=== PATIENT | male | born 1965 | race Caucasian/White ===

== ENCOUNTER 2018-09-18 13:41 | Emergency (ER) | payer MEDICAID ==
[~2018-09-18] VITALS: Ht 165.1 cm; Wt 51.7 kg
[~2018-09-18 13:41] MED LIST: CLON1TAB4 DT; LAM100T PO; LAMO200T2 PO; SUMAPOW3 PO; TOPI100T68 PO
[2018-09-18 13:45] VITALS: BP 95/66
[2018-09-18] MEDS ORDERED: KETOROLAC TROMETH 60MG/2ML VIAL IM ONE (15:15)
[2018-09-18] MEDS ORDERED: CYCLOBENZAPRINE HCL 10 MG TAB PO ONE (15:15)
== END 2018-09-18 15:40 | disposition home or self-care (01) ==
LOC: ER 13:41
DX: S39.012A Strain of muscle, fascia and tendon of lower back, initial encounter (principal); J44.9 Chronic obstructive pulmonary disease, unspecified; I10 Essential (primary) hypertension; F17.210 Nicotine dependence, cigarettes, uncomplicated; Z86.73 Personal history of transient ischemic attack (TIA), and cerebral infarction without residual deficits; Z88.8 Allergy status to other drugs, medicaments and biological substances; Z79.899 Other long term (current) drug therapy; X50.0XXA Overexertion from strenuous movement or load, initial encounter; X50.9XXA Other and unspecified overexertion or strenuous movements or postures, initial encounter; Y93.B9 Activity, other involving muscle strengthening exercises; Y92.89 Other specified places as the place of occurrence of the external cause; Y99.8 Other external cause status
CPT/HCPCS: 72100; 96372; 99283; J1885

== ENCOUNTER 2018-10-01 19:36 | Emergency (ER) | payer MEDICAID ==
[~2018-10-01] VITALS: Ht 160 cm; Wt 52.2 kg
[2018-10-01 19:43] VITALS: BP 127/83
[2018-10-01] MEDS ORDERED: HYDROcodone-ACET 5/325MG TAB PO ONE (23:15)
== END 2018-10-01 23:34 | disposition home or self-care (01) ==
LOC: EDUNIT# 19:36 → EDBD 19:36 → ER 19:39
DX: S43.401A Unspecified sprain of right shoulder joint, initial encounter (principal); J44.9 Chronic obstructive pulmonary disease, unspecified; I10 Essential (primary) hypertension; F17.210 Nicotine dependence, cigarettes, uncomplicated; Z88.5 Allergy status to narcotic agent; Z79.899 Other long term (current) drug therapy; Z86.73 Personal history of transient ischemic attack (TIA), and cerebral infarction without residual deficits; W01.198A Fall on same level from slipping, tripping and stumbling with subsequent striking against other object, initial encounter; Y93.89 Activity, other specified; Y99.8 Other external cause status; Y92.89 Other specified places as the place of occurrence of the external cause
CPT/HCPCS: 73000; 73030

== ENCOUNTER 2019-08-02 16:19 | Emergency (ER) | payer OTHER, MEDICAID ==
[~2019-08-02] VITALS: Ht 165.1 cm; Wt 54.4 kg
[~2019-08-02 16:19] MED LIST changes: +CLON1TAB10 DT; -CLON1TAB4 DT
[2019-08-02] MEDS ORDERED: ALBUTEROL SULF 2.5 MG/0.5ML(0.5%) NEB SOLN NEB ONE ×2 (16:30→18:15)
[2019-08-02] MEDS ORDERED: methylPREDNISolone SOD SUCC 125 MG/2 ML VL IV ONE (16:30)
[2019-08-02] MEDS ORDERED: cefTRIAXone 1GM/50ML D5W 50 ML IV ONE (16:30)
[2019-08-02] MEDS ORDERED: IPRATROPIUM BROM 0.5 MG/2.5ML INH SOL NEB ONE (16:30)
[2019-08-02 16:35] LABS: Basophils # (auto) 0.1 10 ^3/uL (0-0.2); Basophils % (auto) 0.8 % (0.0-2.0); Eosinophils # (auto) 0.3 10 ^3/uL (0-0.8); Eosinophils % (auto) 2.6 % (0.0-7.0); Hematocrit 44.3 % (41.0-53.0); Hemoglobin 15.5 g/dL (13.5-17.5); Lymphocytes # (auto) 3.2 10 ^3/uL (0.4-5.4); Lymphocytes % (auto) 27.9 % (10.0-50.0); Mean Corpuscular Hemoglobin 33.3 pg (28.0-32.0); Mean Corpuscular Volume 94.9 fL (80.0-100.0); Monocytes # (auto) 0.7 10 ^3/uL (0-1.3); Monocytes % (auto) 6.1 % (0.0-12.0); Neutrophils # (auto) 7.1 10 ^3/uL (1.6-8.6); Neutrophils % (auto) 62.6 % (37.0-80.0); Platelet Count (auto) 237 10^3/uL (140-450); Red Blood Cells 4.67 10^6/uL (4.5-5.90); Red Cell Distribution Width 13.3 % (11.8-14.3); White Blood Cell 11.4 10^3/uL (4.4-10.8)
[2019-08-02 16:57] LABS: Albumin 3.9 g/dL (3.4-5.0); Anion Gap 7 (5-15); BUN/Creatinine Ratio 10.5; Blood Urea Nitrogen 10 mg/dL (7-18); Carbon Dioxide 25 mmol/L (21-32); Chloride 105 mmol/L (98-107); GFR African American 105 mL/min; GFR Non-African American 87 mL/min; Glucose 114 mg/dL (74-106); Potassium 3.9 mmol/L (3.5-5.1); Sodium 137 mmol/L (136-145)
[2019-08-02 17:02] LABS: Alanine Aminotransferase 31 U/L (16-61); Alkaline Phosphatase 129 U/L (45-117); Aspartate Aminotransferase 20 U/L (15-37); Bilirubin, Total 0.4 mg/dL (0.2-1.0); Total Protein 7.4 g/dL (6.4-8.2)
[2019-08-02 18:00] VITALS: BP 115/86
[2019-08-02 18:45] LABS: Urine Bacteria NONE SEEN /hpf (None Seen); Urine Blood Negative /uL (Negative); Urine Mucus FEW (None Seen); Urine Specific Gravity 1.024 (1.001-1.035); Urine WBC 7 /hpf (0 - 3)
== END 2019-08-02 19:33 | disposition home or self-care (01) ==
LOC: EDBD 16:19 → ER 16:21
DX: J44.9 Chronic obstructive pulmonary disease, unspecified (principal); D72.829 Elevated white blood cell count, unspecified; I10 Essential (primary) hypertension; F17.210 Nicotine dependence, cigarettes, uncomplicated
CPT/HCPCS: 36415; 71045; 80053; 81001; 83880; 84484; 85025; 93005; 94640; 96365; 96375; 99285; J0696; J2930; J7644

== ENCOUNTER 2023-10-31 14:30 | Emergency (ER) | payer OTHER ==
[~2023-10-31] VITALS: Ht 165.1 cm; Wt 54.5 kg
[~2023-10-31 14:30] MED LIST changes: +CLON-853 DT; -CLON1TAB10 DT
[2023-10-31 14:43] VITALS: BP 144/91; PULSE 81; RESP 20; O2SAT 96
[2023-10-31 16:09] LABS: Basophils # (auto) 0.1 10 ^3/uL (0-0.2); Basophils % (auto) 0.9 % (0.0-2.0); Eosinophils # (auto) 0.4 10 ^3/uL (0-0.8); Eosinophils % (auto) 3.4 % (0.0-7.0); Hematocrit 43.6 % (41.0-53.0); Hemoglobin 15.1 g/dL (13.5-17.5); Lymphocytes # (auto) 2.6 10 ^3/uL (0.4-5.4); Lymphocytes % (auto) 24.1 % (10.0-50.0); Mean Corpuscular Hemoglobin 33.6 pg (28.0-32.0); Mean Corpuscular Hgb Conc. 34.7 g/dL (32.0-36.0); Monocytes # (auto) 0.6 10 ^3/uL (0-1.3); Monocytes % (auto) 5.3 % (0.0-12.0); Neutrophils # (auto) 7.3 10 ^3/uL (1.6-8.6); Neutrophils % (auto) 66.3 % (37.0-80.0); Nucleated Red Blood Cells % 0.1 %; Red Blood Cells 4.49 10^6/uL (4.5-5.90); Red Cell Distribution Width 13.2 % (11.8-14.3)
[2023-10-31 16:31] LABS: Alanine Aminotransferase 34 U/L (7-40); Albumin 4.5 g/dL (3.2-4.8); Alkaline Phosphatase 95 U/L (46-116); Anion Gap 4 (5-15); Aspartate Aminotransferase 17 U/L (13-40); BUN/Creatinine Ratio 7.6 (10.0-20.0); Blood Urea Nitrogen 7 mg/dL (9-23); Calcium 9.8 mg/dL (8.7-10.4); Carbon Dioxide 28 mmol/L (20-30); Chloride 110 mmol/L (98-107); Glucose 87 mg/dL (74-106); Magnesium 1.9 mg/dL (1.6-2.6); Sodium 142 mmol/L (136-145)
[2023-10-31 16:32] LABS: Bilirubin, Total 0.4 mg/dL (0.2-1.0); Total Protein 6.4 g/dL (5.7-8.2)
== END 2023-10-31 19:50 | disposition home or self-care (01) ==
LOC: EDBD 14:30 → ER 14:30
DX: R55 Syncope and collapse (principal); R40.4 Transient alteration of awareness; I10 Essential (primary) hypertension; J44.9 Chronic obstructive pulmonary disease, unspecified; F17.210 Nicotine dependence, cigarettes, uncomplicated; Z86.73 Personal history of transient ischemic attack (TIA), and cerebral infarction without residual deficits; Z98.890 Other specified postprocedural states; Z79.899 Other long term (current) drug therapy; Z91.09 Other allergy status, other than to drugs and biological substances; Z88.6 Allergy status to analgesic agent
CPT/HCPCS: 36415; 71045; 80053; 83615; 83735; 83880; 84484; 85025; 93005

== ENCOUNTER 2024-09-24 21:32 | Inpatient (IN) | payer OTHER ==
[~2024-09-24] VITALS: Ht 162.6 cm; Wt 54.0 kg
[2024-09-24 21:32] VITALS: TEMP 97.8
[2024-09-24] MEDS: IPRATROPIUM BROM 0.5 MG/2.5ML INH SOL NEB ONE (21:45)
[2024-09-24] MEDS: ALBUTEROL SULF 2.5 MG/0.5ML(0.5%) NEB SOLN NEB ONE (21:45)
[2024-09-24] MEDS ORDERED: ASPirin 81 mg TAB PO ONE (21:45)
[2024-09-24] MEDS ORDERED: predniSONE 20 MG TAB PO ONE (21:45)
--- NOTE | 2024-09-24 21:49 | ED.PDOC ---
SOB-HPI HPI Comments 59-year-old male came to ER via EMS for shortness of breath. Patient has history of hypertension and COPD. Patient is not on any home oxygen. About an hour prior to arrival, patient started complaining of substernal chest pains, constant, nonradiating, associated with shortness of breath. Patient was saturating 94% on room air upon arrival. Patient was given breathing treatment while on the way to the emergency room Chief Complaint: Shortness of Breath Time Seen by MD: 21:48 Primary Care Provider: PARESH Cheung notes: Bakery Sales Clerk Notes Information Source: Patient, Emergency Med Personnel Mode of Arrival: EMS Severity: Moderate Timing: Minutes Duration: Since onset Context: With Light Exertion PE Risk Factors: None History of: COPD Prehospital treatment: Breathing Tx, Oxygen Associated Signs and Symptoms: Chest Pain Quality: Pressure Radiation: No Radiation Location: Substernal Past Medical History PAST MEDICAL HISTORY: CAD, COPD, CVA, HTN, Seizures Surgical History: Tonsillectomy Family History Family History: No family hx of Cancer, No family hx of Heart babatunde, No family hx of HTN, No family hx of Lung babatunde Social History Smoker: Cigarettes, Less Than 1 Pack/Day, Other Alcohol: Occasionally Drugs: Denies Drug Use Lives In: Home Constitutional: denies: chills, diaphoresis, fatigue, fever, malaise, sweats, weakness, others EENTM: denies: blurred vision, double vision, ear bleeding, ear discharge, ear drainage, ear pain, ear ringing, eye pain, eye redness, hearing loss, mouth p ain, mouth swelling, nasal discharge, nose bleeding, nose congestion, nose pain, photophobia, tearing, throat pain, throat swelling, voice changes, others Respiratory: reports: SOB at rest, shortness of breath; denies: cough, hemoptysis, orthopnea, SOB with excertion, stridor, wheezing, others Cardiovascular: reports: chest pain; denies: dizzy spells, diaphoresis, Dyspnea on exertion, edema, irregular heart beat, left arm pain, lightheadedness, palpitations, PND, syncope, others Gastrointestinal: denies: abdomen distended, abdominal pain, blood streaked bowels, constipated, diarrhea, dysphagia, difficulty swallowing, hematemesis, m kristin, nausea, poor appetite, poor fluid intake, rectal bleeding, rectal pain, vomiting, others Genitourinary: denies: burning, dysuria, flank pain, frequency, hematuria, incontinence, penile discharge, penile sore, pain, testicle pain, testicle swelling, urgency, others Neurological: denies: dizziness, fainting, headache, left sided numbness, left sided weakness, numbness, paresthesia, pre-existing deficit, right sided numbness, right sided weakness, seizure, speech problems, tingling, tremors, weakness, others Musculoskeletal: denies: back pain, gout, joint pain, joint swelling, muscle pain, muscle stiffness, neck pain, others Integumetry: denies: bruises, change in color, change in hair/nails, dryness, laceration, lesions, lumps, rash, wounds, others Allergic/Immunocompromised: denies: Difficulty Healing, Frequent Infections, Hives, Itching, others Hematologic/Lymphatic: denies: anemia, blood clots, easy bleeding, easy bruising, swollen glands, others Endocrine: denies: excessive hunger, excessive sweating, excessive thirst, excessive urination, flushing, intolerance to cold, intolerance to heat, unexplained weight gain, unexplained weight loss, others Psychiatric: denies: anxiety, bipolar disorder, depression, hopeless, panic disorder, schizophrenia, sleepless, suicidal, others Physical Exam General Appearance: No Apparent Distress, Normal HEENT: Normal ENT Inspection, Pharynx Normal, TMs Normal Neck: Full Range of Motion, Non-Tender, Normal, Normal Inspection Respiratory: Chest Non-Tender, Lungs Clear, No Accessory Muscle Use, No Respiratory Distress, Normal Breath Sounds Cardiovascular: No Edema, No JVD, No Murmur, No Gallop, Normal Peripheral Pulses, Regular Rate/Rhythm Breast Exam: Deferred Gastrointestinal: No Organomegaly, Non Tender, No Pulsatile Mass, Normal Bowel Sounds, Soft Genitalia: Deferred Pelvic: Deferred Rectal: Deferred Extremities: No calf tenderness, Normal capillary refill, Normal inspection, Normal range of motion, Non-tender, No pedal edema Musculoskeletal : Apperance: Normal Neurologic: Alert, insurance underwriter II-XII nml as Tested, No Motor Deficits, Normal Affect, Normal Mood, No Sensory Deficits Cerebellar Function: Normal Reflexes: Normal Skin: Dry, Normal Color, Warm Lymphatic: No Adenopathy EKG EKG : Pulse Rate (adult): 89 Cardiac Rhythm: NSR Was a procedure done? Was a procedure done?: No Differential Dx Differential Diagnosis: Asthma, CHF, COPD, Myocardial infarction, Panic Attack, Pneumonia, Respiratory Distress X-Ray, Labs, Meds, VS Vital Signs Date Time Temp Pulse Resp B/P (MAP) Pulse Ox O2 Delivery O2 Flow Rate FiO2 09/24/24 22:28 20 88 Room Air* 0 21 09/24/24 21:49 89 09/24/24 21:34 89 09/24/24 21:32 97.8 83 24 110/72 (85) 94 97.8 Lab Test 09/24/24 22:56 09/24/24 22:15 09/24/24 21:56 Range/Units Troponin I High Sensitivity 662 *H 190 *H </=54 ng/L Blood Gas Specimen Type Arterial Blood Gas Sample Site Right radial Blood Gas Patient Temperature 37.0 Arterial Blood Date Drawn [id number] Arterial Blood pH 7.443 7.350-7.450 Arterial Blood Partial Pressure CO2 33.5 L 35.0-48.0 mmHg Arterial Blood Partial Pressure O2 51.2 *L 83.0-108.0 mmHg Arterial Blood HCO3 22.4 21.0-28.0 mmol/L Arterial Blood Oxygen Saturation 86.0 L 94.0-98.0 % Arterial Blood Base Excess -0.9 -2.0-3.0 mmol/L Arterial Blood Oxyhemoglobin 81.9 L 94.0-98.0 % Arterial Blood Carboxyhemoglobin 4.4 H 0.5-1.5 % Arterial Blood Methemoglobin 0.4 0.0-1.5 % Kenney Test Yes Blood Gas Total Hemoglobin 14.40 13.5-17.5 g/dL Blood Gas Liter Flow 0.00 Blood Gas Modality Room air FiO2 % 21.0 Blood Gas Critical Value Read Back yes Blood Gas Notified Whom Blood Gas Notified Time [id number] Blood Gas Notified By aubrey beckford, rt White Blood Count 10.7 4.4-10.8 10^3/uL Red Blood Count 4.41 L 4.5-5.90 10^6/uL Hemoglobin 14.9 13.5-17.5 g/dL Hematocrit 42.5 41.0-53.0 % Mean Corpuscular Volume 96.4 80.0-100.0 fL Mean Corpuscular Hemoglobin 33.9 H 28.0-32.0 pg Mean Corpuscular Hemoglobin Concent 35.1 32.0-36.0 g/dL Red Cell Distribution Width 13.3 11.8-14.3 % Platelet Count 202 140-450 10^3/uL Mean Platelet Volume 8.0 6.9-10.8 fL Neutrophils (%) (Auto) 70.3 37.0-80.0 % Lymphocytes (%) (Auto) 19.3 10.0-50.0 % Monocytes (%) (Auto) 7.3 0.0-12.0 % Eosinophils (%) (Auto) 2.4 0.0-7.0 % Basophils (%) (Auto) 0.7 0.0-2.0 % Neutrophils # (Auto) 7.5 1.6-8.6 10 ^3/uL Lymphocytes # (Auto) 2.1 0.4-5.4 10 ^3/uL Monocytes # (Auto) 0.8 0-1.3 10 ^3/uL Eosinophils # (Auto) 0.3 0-0.8 10 ^3/uL Basophils # (Auto) 0.1 0-0.2 10 ^3/uL Nucleated Red Blood Cells 0.1 % Prothrombin Time 11.2 9.3-11.8 sec Prothrombin Time INR 1.06 0.9-1.15 Activated Partial Thromboplast Time 26.7 24.5-34.5 SEC Sodium Level 142 136-145 mmol/L Potassium Level 3.5 3.5-5.1 mmol/L Chloride Level 107 98-107 mmol/L Carbon Dioxide Level 27 20-31 mmol/L Anion Gap 8 5-15 Blood Urea Nitrogen 14 9-23 mg/dL Creatinine 0.90 0.700-1.30 mg/dL Glomerular Filtration Rate Calc 97 >90 mL/min BUN/Creatinine Ratio 15.6 10.0-20.0 Serum Glucose 109 H 74-106 mg/dL Calcium Level 9.4 8.7-10.4 mg/dL Total Bilirubin 0.2 0.2-1.0 mg/dL Aspartate Amino Transferase (AST) 28 13-40 U/L Alanine Aminotransferase (ALT) 22 7-40 U/L Alkaline Phosphatase 133 H 46-116 U/L B-Type Natriuretic Peptide 11.37 0-100 pg/mL Total Protein 7.2 5.7-8.2 g/dL Albumin 4.6 3.2-4.8 g/dL Current Medications Medications (Trade) Dose Ordered Sig/Aden Route Start Time Stop Time Status Last Admin Albuterol (Ventolin Medneb) 5 mg ONCE ONCE NEB 09/24/24 21:45 09/24/24 21:46 DC 09/24/24 21:45 Ipratropium [place] (Atrovent Medneb) 0.5 mg ONCE ONCE NEB 09/24/24 21:45 09/24/24 21:46 DC 09/24/24 21:45 Time of 1ST Reevaluation: 21:46 Reevaluation 1ST: Unchanged Patient Education/Counseling: Diagnosis, Treatment Family Education/Counseling: No Family Present Departure 1 Departure Time of Disposition: 00:04 Impression: Primary Impression: COPD (chronic obstructive pulmonary disease) Additional Impression: Acute coronary syndrome Disposition: ADMITTED INPATIENT Admit to: Tele Condition: Guarded Discharged With: Self Comments Shortness of Breath and Chest Tightness Chief Complaint: Shortness of breath and chest tightness History of Present Illness: 59-year-old male with known history of COPD and coronary artery disease presents to the ED with complaints of shortness of breath and chest tightness for the past day. Patient has a nebulizer machine at home but no supplemental oxygen. He reports improvement in symptoms after receiving oxygen from EMS during transpor t. His symptoms are concerning for both COPD exacerbation and possible acute coronary syndrome given his cardiac history. Review of Systems: Respiratory: Positive for shortness of breath and chest tightness Cardiovascular: Positive for chest tightness All other systems reviewed and negative Medications: Home nebulizer treatments Complete medication list not available at time of documentation Allergies: No known allergies documented Past Medical History: 1. Chronic Obstructive Pulmonary Disease (COPD) 2. Coronary Artery Disease (CAD) Lab Results: CBC: Unremarkable Blood Gas: PCO2 34 Troponin: Initial 190, repeat increased to 662 BNP: Normal at 11.4 Chemistry Panel: Otherwise unremarkable Imaging and Other Relevant Results: Chest X-ray: No acute pathology Medical Decision Making: Summary Statement: 59-year-old male with history of COPD and CAD presenting with acute shortness of breath and chest tightness, found to have significantly elevated and rising troponin levels. Problem List: 1. Acute Coronary Syndrome 2. COPD Exacerbation Differential Diagnosis: 1. NSTEMI 2. COPD Exacerbation 3. Unstable Angina 4. Acute Heart Failure 5. Pneumonia ED Course: Patient received aspirin, nebulizer treatment, and prednisone. Given rising troponin levels and concurrent COPD exacerbation, decision made to admit patient for further management. Assessment and Plan: 1. Acute Coronary Syndrome: - Elevated troponin with significant increase from 190 to 662 - Treated with aspirin - Admit for further cardiac workup and management 2. COPD Exacerbation: - Treated with nebulizer and prednisone - Responded well to oxygen therapy - Continue treatment during admission Billing Information: ICD-10: I21.4 - Non-ST elevation (NSTEMI) myocardial infarction ICD-10: J44.1 - COPD with acute exacerbation Critical Care Note Critical Care Time?: Yes (35 min-critical care time only) Critical care comment: Shortness of breath, chest pain Total critical care time: Approximately 36 minutes Due to a high probability of clinically significant, life threatening deterioration, the patient required my highest level of preparedness to intervene emergently and I personally spent this critical care time directly and personally managing the patient. This critical care time included obtaining a history; examining the patient; pulse oximetry; ordering and review of studies; arranging urgent treatment with development of a management plan; evaluation of patient's response to treatment; frequent reassessment; and, discussions with other providers. This critical care time was performed to assess and manage the high probability of imminent, life-threatening deterioration that could result in multi-organ failure. It was exclusive of separately billable procedures and treating other patients. Stability Stability form required: No Heart Score Heart Score: Heart Score Response (Comments) Value History Moderate Suspicious 1 EKG Normal 0 Age 45-64 1 Risk Factors >3 or Hx ASHD 2 Troponin >3 x's Normal limit 2 Total 6 I personally scribed for CAMELIA GOLDEN MD ([email or web address]) on 09/24/24 at 21:49. Electronically submitted by Blake Martínez ([employer]). I personally scribed for CAMELIA GOLDEN MD ([email or web address]) on 09/24/24 at 23:06. Electronically submitted by Blake Martínez ([employer]). CAMELIA GOLDEN MD Sep 24, 2024 21:49
[2024-09-24 22:14] LABS: Basophils # (auto) 0.1 10 ^3/uL (0-0.2); Basophils % (auto) 0.7 % (0.0-2.0); Eosinophils # (auto) 0.3 10 ^3/uL (0-0.8); Eosinophils % (auto) 2.4 % (0.0-7.0); Hematocrit 42.5 % (41.0-53.0); Hemoglobin 14.9 g/dL (13.5-17.5); Lymphocytes # (auto) 2.1 10 ^3/uL (0.4-5.4); Lymphocytes % (auto) 19.3 % (10.0-50.0); Mean Corpuscular Hemoglobin 33.9 pg (28.0-32.0); Mean Corpuscular Hgb Conc. 35.1 g/dL (32.0-36.0); Mean Corpuscular Volume 96.4 fL (80.0-100.0); Monocytes # (auto) 0.8 10 ^3/uL (0-1.3); Monocytes % (auto) 7.3 % (0.0-12.0); Neutrophils # (auto) 7.5 10 ^3/uL (1.6-8.6); Neutrophils % (auto) 70.3 % (37.0-80.0); Nucleated Red Blood Cells % 0.1 %; Platelet Count (auto) 202 10^3/uL (140-450); Red Blood Cells 4.41 10^6/uL (4.5-5.90); Red Cell Distribution Width 13.3 % (11.8-14.3); White Blood Cell 10.7 10^3/uL (4.4-10.8)
[2024-09-24 22:20] LABS: Base Excess -0.9 mmol/L (-2.0-3.0)
[2024-09-24 22:28] VITALS: RESP 20
[2024-09-24 22:41] LABS: Alanine Aminotransferase 22 U/L (7-40); Albumin 4.6 g/dL (3.2-4.8); Anion Gap 8 (5-15); Aspartate Aminotransferase 28 U/L (13-40); BUN/Creatinine Ratio 15.6 (10.0-20.0); Blood Urea Nitrogen 14 mg/dL (9-23); Calcium 9.4 mg/dL (8.7-10.4); Carbon Dioxide 27 mmol/L (20-31); Sodium 142 mmol/L (136-145); Total Protein 7.2 g/dL (5.7-8.2)
[2024-09-24 22:42] LABS: Alkaline Phosphatase 133 U/L (46-116); Bilirubin, Total 0.2 mg/dL (0.2-1.0); Chloride 107 mmol/L (98-107); Glucose 109 mg/dL (74-106); Potassium 3.5 mmol/L (3.5-5.1)
--- NOTE | 2024-09-24 22:58 | DVH ---
CHEST RADIOGRAPH Indication: SOB Technique: Single frontal view of the chest was obtained COMPARISON: XY CHEST XRAY 1 VIEW on DOS: 10/31/23, CHEST PORTABLE on DOS: 08/02/19 FINDINGS: Lines and Tubes: None Lungs: Clear Pleura: No effusion. No pneumothorax. Cardiomediastinal contours: Unremarkable Bones: Unremarkable IMPRESSION: 1. No acute disease.
[2024-09-24 23:05] LABS: INR 1.06 (0.9-1.15); Partial Thromboplastin Time 26.7 SEC (24.5-34.5); Prothrombin Time 11.2 sec (9.3-11.8)
[2024-09-25] MEDS ORDERED: ACETAMINOPHEN 325 MG TAB PO PRN (01:45)
[2024-09-25] MEDS ORDERED: HYDROcodone-ACET 5/325MG TAB PO PRN (01:45)
[2024-09-25] MEDS ORDERED: AZITHROMYCIN 500MG/ 250ML 250 ML IV SCH (02:15)
[2024-09-25] MEDS ORDERED: ASPirin 325 MG TAB PO ONE (02:45)
[2024-09-25 02:48] VITALS: BP 110/70; PULSE 16; O2SAT 90
--- NOTE | 2024-09-25 02:52 | DVHHPRES ---
History of Present Illness Resident Creating Document: LUCHO COOPER RESIDENT History of Present Illness This is a 59-year-old male with past medical history of COPD, CVA in 2015, recurrent seizures after CVA, running low blood pressure chronically, dyslipidemia, who presented to the ED with acute shortness of breath. The patient reports shortness of breath with minimal exertion associated with cough and sputum production yellowish in color for the past three days and substernal chest pain varying in intensity. The patient reports that had chest pain before this episode but not with this intensity. Patient also mentions that he had a Holter for seven days currently they found a tachyarrhythmia which he does not recall the name. The patient denied fever, chills, weight loss, lower extremity edema or any other symptoms at this time. Initial EKG showed sinus rhythm with right bundle branch block. ABG showed hypoxemia with a PaO2 of 51.2. Initial labs showed slightly elevated WBC at 10.7 with a normal CMP but troponins came back elevated and peaked up at 1418. BNP was 11.37 on normal range. Initial chest x-ray showed bilateral hyperinflated lungs with no clear consolidations. We will admit the patient for further assessment and management of COPD exacerbation and rule out ACS. Past medical history: COPD, CVA in 2015, seizure, chronic low blood pressure, dyslipidemia Home medications: Gabapentin 400 mg daily, aspirin 81 mg daily, Trelegy, la motrigine 200 mg b.i.d., lacosamide 400 mg b.i.d.?, Surgical history: Tonsillectomy, vasectomy, cyst removed over the right eye Social history: Smoked more than two packs of cigarettes throughout all his life but he is currently smoking less than one pack a day and cutting down. No drugs or alcohol intake. Cardiovascular: hyperipidemia Pulmonary: COPD SUPPLY CHAIN DEVELOPMENT MANAGER: Seizure Past Surgical History: Other (Vasectomy and cyst over the right eye), Tonsillectomy Family History: None Smoke: <1 pack per day ALCOHOL: none Drugs: None Lives: with Family Domestic Violence: Neg Review of Systems Constitutional: No: Fever, Chills, Sweats, Weakness, Malaise, Other Eyes: No: Pain, Vision change, Conjunctivae inflammation, Eyelid inflammation, Other, Redness ENT: No: Ear pain, Ear discharge, Nose pain, Nose discharge, Nose congestion, Mouth pain, Mouth swelling, Throat pain, Throat swelling, Other Respiratory: Cough, Shortness of breath, SOB with excertion, Sputum; No: Dry, Wheezing, Hemoptysis, Pleuritic Pain, Wheezing, Other Cardiovascular: Chest Pain; No: Palpitations, Orthopnea, Paroxysmal Noc. Dyspnea, Edema, Lt Headedness, Other Gastrointestinal: No: Nausea, Vomiting, Abdominal Pain, Diarrhea, Constipation, Melena, Hematochezia, Other Genitourinary: No Dysuria, No Frequency, No Incontinence, No Hematuria, No Retention, No Other Musculoskeletal: No: other, neck pain, shoulder pain, arm pain, back pain, hand pain, leg pain, foot pain Skin: No: Rash, Lesions, Jaundice, Bruising, Other Neurological: No: Weakness, Numbness, Incoordination, Change in speech, Confusion, Seizures, Other Allergies: Coded Allergies: Aloe (Verified Allergy, Mild, 06/11/14) [place] (Verified Allergy, Unknown, 11/04/13) Morphine (Unverified Adverse Reaction, Mild, HEADACE AND ITCHING, 07/12/14) Medications Current Medications Medications Dose Ordered Sig/Aden Route Start Time Stop Time Status Last Admin Dose Admin Acetaminophen 650 mg Q6HP PRN PO 09/25/24 01:45 Acetaminophen/ Hydrocodone Bitart 1 tab Q4HP PRN PO 09/25/24 01:45 Enoxaparin Sodium 40 mg DAILY SC 09/25/24 10:00 Azithromycin 250 ml @ 125 mls/hr DAILY@2200 IV 09/25/24 02:15 Ceftriaxone Sodium 50 ml @ 100 mls/hr DAILY@2100 IV 09/25/24 03:30 Methylprednisolone Sodium Succinate 40 mg BID IV 09/25/24 04:00 Albuterol 2.5 mg Q4HR NEB 09/25/24 06:00 Ipratropium [place] 0.5 mg Q4HR NEB 09/25/24 06:00 Exam Vital Signs Vital Signs Date Time Temp Pulse Resp B/P (MAP) Pulse Ox O2 Delivery O2 Flow Rate FiO2 09/24/24 22:28 20 88 Room Air* 0 21 09/24/24 21:49 89 09/24/24 21:32 97.8 110/72 (85) 97.8 General Appearance: Alert, Oriented X3, Cooperative, mild distress HEENT: Atraumatic, PERRLA, EOMI, Mucous membr. moist/pink Respiratory: Clear to auscultation, Other (There is decreased breath sounds on bilateral lung bases) Cardiovascular: Regular rate, Normal S1, Normal S2, No murmurs Abdominal: Normal bowel sounds, Soft, No tenderness, No hepatospenomegaly Extremities: No clubbing, No cyanosis, No edema, Normal pulses, No tenderness/swelling Skin: No rashes, No breakdown, No significant lesion Neuro: Normal gait, Normal speech, Strength at 5/5 X4 ext, Normal tone, Sensation intact, Cranial nerves 3-12 NL, Reflexes 2+ Psych/Mental Status: Mental status NL, Mood NL Labs/Xrays Labs Test 09/25/24 00:31 09/24/24 22:15 09/24/24 21:56 Range/Units Troponin I High Sensitivity 1418 *H </=54 ng/L Blood Gas Specimen Type Arterial Blood Gas Sample Site Right radial Blood Gas Patient Temperature 37.0 Arterial Blood Date Drawn [id number] Arterial Blood pH 7.443 7.350-7.450 Arterial Blood Partial Pressure CO2 33.5 L 35.0-48.0 mmHg Arterial Blood Partial Pressure O2 51.2 *L 83.0-108.0 mmHg Arterial Blood HCO3 22.4 21.0-28.0 mmol/L Arterial Blood Oxygen Saturation 86.0 L 94.0-98.0 % Arterial Blood Base Excess -0.9 -2.0-3.0 mmol/L Arterial Blood Oxyhemoglobin 81.9 L 94.0-98.0 % Arterial Blood Carboxyhemoglobin 4.4 H 0.5-1.5 % Arterial Blood Methemoglobin 0.4 0.0-1.5 % [place] Test Yes Blood Gas Total Hemoglobin 14.40 13.5-17.5 g/dL Blood Gas Liter Flow 0.00 Blood Gas Modality Room air FiO2 % 21.0 Blood Gas Critical Value Read Back yes Blood Gas Notified Whom Blood Gas Notified Time [id number] Blood Gas Notified By aubrey beckford, rt White Blood Count 10.7 4.4-10.8 10^3/uL Red Blood Count 4.41 L 4.5-5.90 10^6/uL Hemoglobin 14.9 13.5-17.5 g/dL Hematocrit 42.5 41.0-53.0 % Mean Corpuscular Volume 96.4 80.0-100.0 fL Mean Corpuscular Hemoglobin 33.9 H 28.0-32.0 pg Mean Corpuscular Hemoglobin Concent 35.1 32.0-36.0 g/dL Red Cell Distribution Width 13.3 11.8-14.3 % Platelet Count 202 140-450 10^3/uL Mean Platelet Volume 8.0 6.9-10.8 fL Neutrophils (%) (Auto) 70.3 37.0-80.0 % Lymphocytes (%) (Auto) 19.3 10.0-50.0 % Monocytes (%) (Auto) 7.3 0.0-12.0 % Eosinophils (%) (Auto) 2.4 0.0-7.0 % Basophils (%) (Auto) 0.7 0.0-2.0 % Neutrophils # (Auto) 7.5 1.6-8.6 10 ^3/uL Lymphocytes # (Auto) 2.1 0.4-5.4 10 ^3/uL Monocytes # (Auto) 0.8 0-1.3 10 ^3/uL Eosinophils # (Auto) 0.3 0-0.8 10 ^3/uL Basophils # (Auto) 0.1 0-0.2 10 ^3/uL Nucleated Red Blood Cells 0.1 % Prothrombin Time 11.2 9.3-11.8 sec Prothrombin Time INR 1.06 0.9-1.15 Activated Partial Thromboplast Time 26.7 24.5-34.5 SEC Sodium Level 142 136-145 mmol/L Potassium Level 3.5 3.5-5.1 mmol/L Chloride Level 107 98-107 mmol/L Carbon Dioxide Level 27 20-31 mmol/L Anion Gap 8 5-15 Blood Urea Nitrogen 14 9-23 mg/dL Creatinine 0.90 0.700-1.30 mg/dL Glomerular Filtration Rate Calc 97 >90 mL/min BUN/Creatinine Ratio 15.6 10.0-20.0 Serum Glucose 109 H 74-106 mg/dL Calcium Level 9.4 8.7-10.4 mg/dL Total Bilirubin 0.2 0.2-1.0 mg/dL Aspartate Amino Transferase (AST) 28 13-40 U/L Alanine Aminotransferase (ALT) 22 7-40 U/L Alkaline Phosphatase 133 H 46-116 U/L B-Type Natriuretic Peptide 11.37 0-100 pg/mL Total Protein 7.2 5.7-8.2 g/dL Albumin 4.6 3.2-4.8 g/dL Assessment/Plan Assessment/Plan Assessment/plan Acute hypoxic respiratory failure likely due to COPD exacerbation COPD exacerbation Possible viral pneumonia, R/O gram+/- bacterial pneumonia Acute chest pain, R/O ACS Possible stable angina NSTEMI likely type II Dyslipidemia Seizure disorder History of CVA without residual neurologic deficits Plan -initial chest x-ray showed hyperinflated lungs bilaterally with no clear evidence of consolidations -start methylprednisolone 40 mg IV b.i.d. -start IV azithromycin and ceftriaxone -start albuterol and ipratropium med nebs q.4 hours scheduled -EKG showed sinus rhythm with right bundle branch block -troponins were elevated at 662 and peaked up at 1418 -ordered echocardiogram -consulted cardiology for possible stress test -start aspirin 81 mg daily -Start atorvastatin 80mg daily -Resume home meds -Currently on 2 L of O2 through nasal cannula -Monitor Sat closely Goals of care discussed with the patient at bedside for >35min, FULL CODE Plan discussed with Dr. Unger Plan discussed with: Patient My Orders Orders - LUCHO COOPER Procedure Category Date Status Time Admit ADMIT 09/25/24 Transmitted 01:45 Code Status CODE 09/25/24 Transmitted 01:45 Vital Signs [facility] 09/25/24 In Process 01:45 Review Orders With KLARISSA 09/25/24 In Process Adm. 01:45 Encourage Activity As KLARISSA 09/25/24 In Process Tolerate 01:45 Regular Diet DIET 09/25/24 Transmitted Breakfast Pulse Ox Cont Per Day RT 09/25/24 Logged 01:45 Acetaminophen Tablet PHA 09/25/24 In Process (Tylenol Tablet) 01:45 Notify Of Changes KLARISSA 09/25/24 In Process From Base 01:45 Advance Directive KLARISSA 09/25/24 In Process 01:45 Urinalysis LAB 09/25/24 Logged 01:45 Complete Blood Count LAB 09/25/24 Logged 04:00 Drug Screen LAB 09/25/24 Logged 01:45 Hemoglobin A1c LAB 09/25/24 Logged 01:45 Enoxaparin Sodium PHA 09/25/24 In Process (Lovenox) 10:00 Lipid Panel LAB 09/25/24 Logged 01:45 Patient Condition ORDERS 09/25/24 Verified 01:45 Allergies KLARISSA 09/25/24 Verified 01:45 Hydrocodone-Acet PHA 09/25/24 In Process 5/325mg Tab ([place] 01:45 Basic Metabolic Panel LAB 09/25/24 Logged 04:00 Azithromycin 500mg/ PHA 09/25/24 In Process 250ml (Zithromax 50 02:15 Ceftriaxone 1gm/50ml PHA 09/25/24 In Process D5w (Rocephin) 03:30 Methylprednisolone PHA 09/25/24 In Process Sod Succ (Solu Medrol 04:00 Albuterol Medneb PHA 09/25/24 In Process (Ventolin Medneb) 06:00 Ipratropium Medneb PHA 09/25/24 In Process (Atrovent Medneb) 06:00 D-Dimer LAB 09/25/24 In Process 02:11 Echo 2d Mode Cardiac US 09/25/24 Logged DOP 02:11 * Cardiology Consult CONS 09/25/24 Verified 02:15 Date of Service: Sep 25, 2024 Billing Provider: YOGESH UNGER MD Common Visit Codes: [id number] INP/OBS CARE (HIGH) Secondary Visit Codes: [id number] CARE PLAN 30 MINUTES LUCHO COOPER RESIDENT Sep 25, 2024 02:52
[2024-09-25] MEDS ORDERED: lamoTRIgine 100 MG TAB PO SCH (03:00)
[2024-09-25] MEDS ORDERED: cefTRIAXone 1GM/50ML D5W 50 ML IV SCH (03:30)
[2024-09-25] MEDS ORDERED: methylPREDNISolone SOD SUCC 40 MG/ML VL IV SCH (04:00)
[2024-09-25] MEDS ORDERED: ALBUTEROL SULF 2.5 MG/0.5ML(0.5%) NEB SOLN NEB SCH (06:00)
[2024-09-25] MEDS ORDERED: IPRATROPIUM BROM 0.5 MG/2.5ML INH SOL NEB SCH (06:00)
[2024-09-25] MEDS ORDERED: ASPirin 81 mg TAB PO SCH (10:00)
[2024-09-25] MEDS ORDERED: ATORVASTATIN 20 MG TAB PO SCH (10:00)
[2024-09-25] MEDS ORDERED: GABAPENTIN 400 MG CAP PO SCH (10:00)
[2024-09-25] MEDS ORDERED: ENOXAPARIN SOD 40 MG/0.4 ML SYRINGE SC SCH (10:00)
--- NOTE | 2024-09-26 18:33 | DVHDS2 ---
Discharge Summary Date of Admission Sep 25, 2024 at 01:45 Date of Discharge: Sep 25, 2024 Labs/Diagnostic Data: Laboratory Results Test 09/25/24 00:31 09/24/24 22:15 09/24/24 21:56 Troponin I High Sensitivity 1418 ng/L (</=54) Blood Gas Specimen Type Arterial Blood Gas Sample Site Right radial Blood Gas Patient Temperature 37.0 Arterial Blood Date Drawn [id number] Arterial Blood pH 7.443 (7.350-7.450) Arterial Blood Partial Pressure CO2 33.5 mmHg (35.0-48.0) Arterial Blood Partial Pressure O2 51.2 mmHg (83.0-108.0) Arterial Blood HCO3 22.4 mmol/L (21.0-28.0) Arterial Blood Oxygen Saturation 86.0 % (94.0-98.0) Arterial Blood Base Excess -0.9 mmol/L (-2.0-3.0) Arterial Blood Oxyhemoglobin 81.9 % (94.0-98.0) Arterial Blood Carboxyhemoglobin 4.4 % (0.5-1.5) Arterial Blood Methemoglobin 0.4 % (0.0-1.5) Kenney Test Yes Blood Gas Total Hemoglobin 14.40 g/dL (13.5-17.5) Blood Gas Liter Flow 0.00 Blood Gas Modality Room air FiO2 % 21.0 Blood Gas Critical Value Read Back yes Blood Gas Notified Whom Blood Gas Notified Time [id number] Blood Gas Notified By aubrey beckford, rt White Blood Count 10.7 10^3/uL (4.4-10.8) Red Blood Count 4.41 10^6/uL (4.5-5.90) Hemoglobin 14.9 g/dL (13.5-17.5) Hematocrit 42.5 % (41.0-53.0) Mean Corpuscular Volume 96.4 fL (80.0-100.0) Mean Corpuscular Hemoglobin 33.9 pg (28.0-32.0) Mean Corpuscular Hemoglobin Concent 35.1 g/dL (32.0-36.0) Red Cell Distribution Width 13.3 % (11.8-14.3) Platelet Count 202 10^3/uL (140-450) Mean Platelet Volume 8.0 fL (6.9-10.8) Neutrophils (%) (Auto) 70.3 % (37.0-80.0) Lymphocytes (%) (Auto) 19.3 % (10.0-50.0) Monocytes (%) (Auto) 7.3 % (0.0-12.0) Eosinophils (%) (Auto) 2.4 % (0.0-7.0) Basophils (%) (Auto) 0.7 % (0.0-2.0) Neutrophils # (Auto) 7.5 10 ^3/uL (1.6-8.6) Lymphocytes # (Auto) 2.1 10 ^3/uL (0.4-5.4) Monocytes # (Auto) 0.8 10 ^3/uL (0-1.3) Eosinophils # (Auto) 0.3 10 ^3/uL (0-0.8) Basophils # (Auto) 0.1 10 ^3/uL (0-0.2) Nucleated Red Blood Cells 0.1 % Prothrombin Time 11.2 sec (9.3-11.8) Prothrombin Time INR 1.06 (0.9-1.15) Activated Partial Thromboplast Time 26.7 SEC (24.5-34.5) D-Dimer, Quantitative 0.44 mg/L FEU (0.0-0.49) Sodium Level 142 mmol/L (136-145) Potassium Level 3.5 mmol/L (3.5-5.1) Chloride Level 107 mmol/L (98-107) Carbon Dioxide Level 27 mmol/L (20-31) Anion Gap 8 (5-15) Blood Urea Nitrogen 14 mg/dL (9-23) Creatinine 0.90 mg/dL (0.700-1.30) Glomerular Filtration Rate Calc 97 mL/min (>90) BUN/Creatinine Ratio 15.6 (10.0-20.0) Serum Glucose 109 mg/dL (74-106) Calcium Level 9.4 mg/dL (8.7-10.4) Total Bilirubin 0.2 mg/dL (0.2-1.0) Aspartate Amino Transferase (AST) 28 U/L (13-40) Alanine Aminotransferase (ALT) 22 U/L (7-40) Alkaline Phosphatase 133 U/L (46-116) B-Type Natriuretic Peptide 11.37 pg/mL (0-100) Total Protein 7.2 g/dL (5.7-8.2) Albumin 4.6 g/dL (3.2-4.8) Other Laboratory Tests 09/24/24 21:56 Brief Hx & Hospital Course: 59-year-old male with a known history of COPD , history of CVA, dyslipidemia, seizure disorder initially presented to the hospital with the increasing shortness a breath found to have acute COPD exacerbation. Patient was eventually treated with the IV antibiotics med nebs and O2 supplementation. Patient left against medical advice before completion of workup and treatment. Condition at Discharge: Undetermined Final Diagnosis/Problems List 1. Acute hypoxic respiratory failure secondary to acute COPD exacerbation 2. Acute COPD exacerbation 3. Hypertension 4. History of CVA 5. Noncompliance Discharge Disposition: AMA SNF Discharge Will this Physician continue t: No Discharge Statement: "Patient was advised to return to the ER or call 911 if any headaches, dizziness, shortness of breath, chest pain, abdominal pain, bleeding, fevers, or worsening of medical condition. Patient was counseled about treatment plan, medications, possible side effects, patientverbalized understanding. All questions were answered to the best of my ability. This discharge took greater then 30 minutes in planning, reviewing documentation, counseling the patient, and discussing with other team members." ASSESSMENT ASSESSMENT Assessment Date of Service: Sep 25, 2024 Billing Provider: NATALIIA KESSLER MD Common Visit Codes: 12481-YKJ/OBS DISCH DAY <30MIN NATALIIA KESSLER MD Sep 26, 2024 18:33
--- NOTE | 2024-09-27 12:17 | ECG ---
[facility] Test Date: 2024-09-24 Test Time: 21:34:38 Pat Name: CARLY WOODY Department: ED Room: [address] [place] [address] Gender: M [employer]: [employer] : 1965 Requested By: CAMELIA GOLDEN Order Number: [id number] Reading MD: Tino Dobbins Measurements Intervals [place] Rate: 89 P: 83 CA: 201 QRS: -107 QRSD: 127 T: 3 QT: 383 QTc: 467 Interpretive Statements Sinus rhythm Biatrial enlargement RBBB and LAFB Electronically Signed On 09-29-2024 20:44:35 PDT by Tino Dobbins Please click the below link to view image of tracing.
== END 2024-09-25 03:50 | disposition left against medical advice (07) | DRG 189 ==
LOC: EDBD 21:32 → ER 21:37 → OVERFLOW 09-25 01:45
PROVIDERS: ADMIT Student in an Organized Health Care Education/Training Program; ATTEND Emergency Medicine
DX: J96.01 Acute respiratory failure with hypoxia (principal); I21.A1 Myocardial infarction type 2; J44.1 Chronic obstructive pulmonary disease with (acute) exacerbation; I10 Essential (primary) hypertension; I25.10 Atherosclerotic heart disease of native coronary artery without angina pectoris; F17.210 Nicotine dependence, cigarettes, uncomplicated; G40.909 Epilepsy, unspecified, not intractable, without status epilepticus; E78.5 Hyperlipidemia, unspecified; Z53.29 Procedure and treatment not carried out because of patient's decision for other reasons; Z88.5 Allergy status to narcotic agent; Z86.73 Personal history of transient ischemic attack (TIA), and cerebral infarction without residual deficits; Z88.8 Allergy status to other drugs, medicaments and biological substances; Z79.899 Other long term (current) drug therapy; Z91.199 Patient's noncompliance with other medical treatment and regimen due to unspecified reason
CPT/HCPCS: 36415; 36600; 71045; 80053; 82805; 83880; 84484; 85025; 85379; 85610; 85730; 93005; 94640; 99291; G0378